=== PATIENT | female | born 1985 | race Caucasian/White ===

== ENCOUNTER 2017-03-28 09:23 | Emergency (ER) | payer SELFPAY ==
[~2017-03-28] VITALS: Ht 154.9 cm; Wt 53.8 kg
[2017-03-28 10:03] LABS: HEMATOCRIT 45.6 % (34.6-47.8); HEMOGLOBIN 15.9 g/dL (11.7-16.4); WHITE BLOOD COUNT 6.8 x10^3/uL (3.4-10)
[2017-03-28 10:11] LABS: ASPARTATE AMINO TRANSFERASE 11 U/L (15-37); BLOOD UREA NITROGEN 12 mg/dL (7-18)
[2017-03-28 12:00] VITALS: BP 104/77
== END 2017-03-28 12:44 | disposition home or self-care (01) ==
LOC: EDBD 09:23 → ED 09:58
DX: K21.9 Gastro-esophageal reflux disease without esophagitis (principal); F17.210 Nicotine dependence, cigarettes, uncomplicated
CPT/HCPCS: 36415; 76700; 80053; 81001; 83690; 84703; 85025; 86677; 87086; 99285